=== PATIENT | male | born 1965 | race Caucasian/White ===

== ENCOUNTER → 2020-10-22 | Outpatient (CLI) | payer OTHER | LOC: SLEEP 10:38 | DX: G47.33 Obstructive sleep apnea (adult) (pediatric) (principal) | CPT/HCPCS: 95811 ==

== ENCOUNTER → 2021-01-05 | Outpatient (CLI) | payer OTHER | LOC: KOH-I 09:55 | DX: M54.41 Lumbago with sciatica, right side (principal); M47.816 Spondylosis without myelopathy or radiculopathy, lumbar region | CPT/HCPCS: 72100 ==

== ENCOUNTER → 2021-04-23 | Outpatient (CLI) | payer OTHER | LOC: KOH-I 11:39 | DX: R06.02 Shortness of breath (principal) | CPT/HCPCS: 71046 ==